=== PATIENT | male | born 1970 | race Caucasian/White ===

== ENCOUNTER 2018-07-30 21:46 | Emergency (ER) | payer OTHER ==
[~2018-07-30] VITALS: Ht 177.8 cm; Wt 88.5 kg
[~2018-07-30 21:46] MED LIST: ANAPROX DS550 MG PO; CEPHALEXIN500 M1 PO; KEFLEX500 M1 PO; MOTRIN800 MG PO
[2018-07-30] MEDS ORDERED: ZYLOPRIM100 MG PO (21:52)
== END 2018-07-31 00:40 | disposition home or self-care (01) ==
LOC: ED 21:46
DX: M54.2 Cervicalgia (principal); R42 Dizziness and giddiness; M79.644 Pain in right finger(s); R11.0 Nausea; Z98.890 Other specified postprocedural states; Z79.899 Other long term (current) drug therapy; V49.88XA Car occupant (driver) (passenger) injured in other specified transport accidents, initial encounter; Y93.89 Activity, other specified; Y92.413 State road as the place of occurrence of the external cause; Y99.9 Unspecified external cause status